=== PATIENT | female | born 1995 | race Caucasian/White ===

== ENCOUNTER 2019-03-16 08:29 | Emergency (ER) | payer BC, OTHER ==
[2019-03-16] MEDS ORDERED: Lidocaine 1.5% with EPINEPHrine 1:200,000 5 ML Amp INJECT ONE (09:38)
[2019-03-16] MEDS ORDERED: EPINEPHrine/Lidocaine/Tetracai 3 ML ML TOP ONE (09:38)
--- NOTE | 2019-03-16 11:11 | EDM.PDOC ---
ED HPI GENERAL MEDICAL PROBLEM - General Chief Complaint: Laceration Stated Complaint: HEAD LAC Time Seen by Provider: 03/16/19 09:33 Source of Information: Reports: Patient, Family History Limitations: Reports: No Limitations - History of Present Illness INITIAL COMMENTS - FREE TEXT/NARRATIVE: The patient presents with a head injury. She was riding horse and she got bucked off. She may have hit some concrete. She had no LOC. She has no headache. She does have a 4cm laceration to the top of her head. She has no neck pain. She has no numbness or weakness. She has no chest pain or abdominal pain. She has no nausea or vomiting. Onset: Sudden Duration: Minutes: Improves with: Reports: None Worsens with: Reports: None Associated Symptoms: Reports: No Other Symptoms - Related Data Allergies Allergy/AdvReac Type Severity Reaction Status Date / Time No Known Allergies Allergy Verified 03/16/19 09:17 Home Meds: Home Meds PNV95/Ferrous Fumarate/FA [ Tablet] 1 each PO DAILY 10/01/15 [History] Ibuprofen [Motrin] 600 mg PO Q6H PRN tablet 09/11/18 [Rx] Past Medical History - Past Health History Medical/Surgical History: Denies Medical/Surgical History HEENT History: Reports: Impaired Vision Other HEENT History: wears glasses and contacts TELEVISION SPECIALIST History: Reports: , Other (See Below) Other TELEVISION SPECIALIST History: 1 delivery Musculoskeletal History: Reports: Fracture, Other (See Below) Other Musculoskeletal History: scoliosis Social & Family History - Family History Family Medical History: Noncontributory - Tobacco Use Smoking Status *Q: Never Smoker Second Hand Smoke Exposure: No - Caffeine Use Caffeine Use: Reports: Coffee - Recreational Drug Use Recreational Drug Use: No ED ROS GENERAL - Review of Systems Review Of Systems: See Below Constitutional: Reports: No Symptoms HEENT: Reports: No Symptoms Respiratory: Reports: No Symptoms Cardiovascular: Reports: No Symptoms Endocrine: Reports: No Symptoms GI/Abdominal: Reports: No Symptoms : Reports: No Symptoms Musculoskeletal: Reports: No Symptoms Skin: Reports: Other (Laceration to the top of her head) Neurological: Reports: No Symptoms ED EXAM, SKIN/RASH Exam: See Below Exam Limited By: No Limitations General Appearance: Alert, No Apparent Distress Eye Exam: Bilateral Eye: EOMI Ears: Normal External Exam Nose: Normal Inspection Head: Other (4cm laceration to the top and occipital region of her head.) Neck: Normal Inspection, Supple, Non-Tender Respiratory/Chest: No Respiratory Distress, Lungs Clear, Normal Breath Sounds Cardiovascular: Regular Rate, Rhythm, No Edema, No Murmur GI/Abdominal: Soft, Non-Tender, No Organomegaly, No Mass Back Exam: Normal Inspection Extremities: Normal Inspection ED SKIN PROCEDURES - Laceration/Wound Repair Head Lac/Wound length In cm: 4 Appearance: Irregular, Clean Anesthetic Type: Local Local Anesthesia - Lidocaine (Xylocaine): 1% with EPI Skin Prep: Saline Exploration/Debridement/Repair: Wound Explored, In a Bloodless Field, Explored to Base Closed with: Sutures Suture Size: 4-0 # of Sutures: 7 Suture Type: Nylon, Simple Suture Size: 3-0 # of Sutures: 2 Repaired with: Vicryl Tetanus Status Addressed: Yes Complications: No Course - Vital Signs Last Recorded V/S: Last Vital Signs Temp 98.3 F 03/16/19 09:15 Pulse 70 03/16/19 09:15 Resp 16 03/16/19 09:15 BP 113/74 03/16/19 09:15 Pulse Ox 98 03/16/19 09:15 - Orders/Labs/Meds Meds: Medications Discontinued Medications Generic Name Dose Route Start Last Admin Trade Name Michelle PRN Reason Stop Dose Admin Lidocaine/Epinephrine 5 ml 03/16/19 09:38 Xylocaine-Mpf 1.5% W/Epinephrine 1:200,000 INJECT 03/16/19 09:39 ONETIME ONE Lidocaine/Tetracaine 3 ml 03/16/19 09:38 Let Soln TOP 03/16/19 09:39 ONETIME ONE - Re-Assessments/Exams Free Text/Narrative Re-Assessment/Exam: 03/16/19 11:11 I do not feel she needs a CT of her head. Someone can watch her for the next 24 hours. Departure - Departure Time of Disposition: 11:15 Disposition: Home, Self-Care 01 Condition: Good Clinical Impression: Animal-rider injured by fall from or being thrown from horse in noncollision accident, initial encounter Laceration of scalp Qualifiers: Encounter type: initial encounter Qualified Code(s): S01.01XA - Laceration without foreign body of scalp, initial encounter - Discharge Information *PRESCRIPTION DRUG MONITORING PROGRAM REVIEWED*: No *COPY OF PRESCRIPTION DRUG MONITORING REPORT IN PATIENT MANUEL: No Referrals: PCP,None [Primary Care Provider] - Tania Jerez PA-C [Physician Training Analyst] - 1 Week Additional Instructions: Clean the wound with warm soapy water 2 times per day and apply antibiotic ointment after. Have the sutures removed in 1 week. Look for any signs of infection such as redness, swelling, pain or discharge. If you see any of these signs please return. You may need oral antibiotics. Have someone check on you every 4 hours for the next 24 hours. If you have nausea, vomiting, headache, numbness, weakness or if you are not acting right please return.
[2019-03-16 11:24] VITALS: BP 110/70
[2019-03-16] MEDS ORDERED: Lidocaine 1% with EPINEPHrine 1:100,000 20 ML MDV INJECT ONE (11:27)
== END 2019-03-16 11:20 | disposition home or self-care (01) ==
LOC: JD.ED 08:29
DX: S01.01XA Laceration without foreign body of scalp, initial encounter (principal); Z79.899 Other long term (current) drug therapy; V80.919A Animal-rider injured in unspecified transport accident, initial encounter
CPT/HCPCS: 12002; 99282

== ENCOUNTER 2022-05-03 07:23 | Emergency (ER) | payer BC ==
[2022-05-03 09:03] LABS: ESTIMATED GFR 78 mL/min (>60)
[2022-05-03] MEDS ORDERED: Ondansetron 4 MG/2 ML SDV IVPUSH ONE (09:17)
[2022-05-03] MEDS ORDERED: HYDROmorphone 0.5 MG/0.5 ML Syringe IVPUSH ONE (09:17)
[2022-05-03] MEDS ORDERED: Sodium Chloride 0.9% 1,000 ML IV SCH (09:30)
[2022-05-03] MEDS ORDERED: Sodium Chloride 0.9% 10 ML Syringe FLUSH ONE (10:07)
[2022-05-03] MEDS ORDERED: Iopamidol 612 MG/ML 100 ML Bottle IVPUSH ONE (10:07)
[2022-05-03 12:42] VITALS: BP 93/67; PULSE 60
== END 2022-05-03 12:38 | disposition home or self-care (01) ==
LOC: JD.ED 07:23
DX: R10.12 Left upper quadrant pain (principal); Z20.822 Contact with and (suspected) exposure to COVID-19
CPT/HCPCS: 36415; 74177; 80053; 83690; 83735; 85025; 86140; 87635; 96361; 96374; 96375; 99284; J1170; J2405; J3490; J7030; Q9967; U0002